=== PATIENT | female | born 1955 | race Caucasian/White ===

== ENCOUNTER → 2016-07-17 | Outpatient (CLI) | payer OTHER ==
[2016-07-17 16:45] LABS: HEMATOCRIT 40.5 % (36.0-46.0); MEAN CELL HGB 31.2 pg (26-34); MEAN CELL HGB CONCENTRATION 32.1 g/dL (33-37); MEAN CORP VOLUME 97.1 fL (78-100); MEAN PLATELET VOLUME 9.5 fL (7.8-11.0); RED CELL DISTRIBUTION WIDTH 13.3 % (11.5-14.5); WHITE BLOOD CELL 13.8 10^3/uL (4.5-11.0)
[2016-07-17 17:13] LABS: CALCIUM 9.3 mg/dL (8.4-10.5)
== END | disposition home or self-care (01) ==
LOC: RT 16:26
PROVIDERS: ATTEND Ophthalmology
DX: Z01.810 Encounter for preprocedural cardiovascular examination (principal); H35.371 Puckering of macula, right eye
CPT/HCPCS: 36415; 80053; 85027; 93005

== ENCOUNTER → 2016-09-27 | Outpatient (CLI) | payer OTHER ==
--- NOTE | 2016-09-27 16:37 | DIREP ---
PROCEDURE:Digital Screening Mammogram TECHNIQUE:MLO and CC digital images of each breast are provided. Computer Assisted Detection (CAD) was utilized. COMPARISON:[facility], , DIGITAL MAMMO SCREENING, 06/23/2013, 12:09 PM. INDICATIONS:SCREENING BREAST COMPOSITION:The breasts are heterogeneously dense, which may obscure small masses. FINDINGS:There are no grouped microcalcifications, masses, or architectural distortions to suggest malignancy. There is no significant change as compared with the previous examination(s). IMPRESSION:No mammographic evidence of malignancy. RECOMMENDATIONS:Routine Screening Mammography per [employer] guidelines. OVERALL FINAL ASSESSMENT:BI-RADS 1 - Negative Mammogram Note: This facility participates in a mammography screening patient reminder system. Dictated by: Kyle Walter M.D. on 09/27/2016 at 04:35 PM
== END | disposition home or self-care (01) ==
LOC: RAD 11:34
PROVIDERS: ATTEND Obstetrics & Gynecology
DX: Z12.31 Encounter for screening mammogram for malignant neoplasm of breast (principal)
CPT/HCPCS: G0202; 77067

== ENCOUNTER 2017-01-24 10:48 | Inpatient (IN) | payer OTHER ==
[~2017-01-24] VITALS: Ht 170.2 cm; Wt 103.4 kg
--- NOTE | 2017-01-24 11:06 | ER.PDOC ---
General Chief Complaint: Abdomen Pain Stated Complaint: ABD PAIN Time seen by MD: 11:04 Source: patient Exam Limitations: no limitations History of Present Illness Initial Comments pt had acute onset of epigastric and upper abdominal pain, no radiation, denies fever/chills Timing/Duration: 1-3 hours Severity/Quality: mild Radiation: no radiation Associated Symptoms: denies symptoms Allergies: Coded Allergies: Penicillins (Verified Allergy, Unknown, Rash, 03/12/16) Vital Signs First Vital Signs Date Time Temp Pulse Resp B/P (MAP) Pulse Ox O2 Delivery O2 Flow Rate FiO2 01/24/17 11:00 97.8 84 17 97 01/24/17 11:02 146/96 (113) Last Vital Signs Date Time Temp Pulse Resp B/P (MAP) Pulse Ox O2 Delivery O2 Flow Rate FiO2 01/24/17 11:02 97.8 91 17 146/96 (113) 97 Past Medical History Medical History: no pertinent history Surgical History: back LMP (females 10-50): postmenopause Social History Smoking: non-smoker Alcohol Use: none Drug Use: none Reviewed Nursing Reviewed: Vital Signs, Abn. Noted, Nursing Assessment Constitutional: no symptoms reported EENTM: no symptoms reported Respiratory: no symptoms reported Cardiovascular: no symptoms reported Gastrointestinal: see HPI, abdominal pain Musculoskeletal: no symptoms reported Skin: no symptoms reported Psychiatric/Neurological: no symptoms reported Endocrine: no symptoms reported Hematologic/Lymphatic: no symptoms reported Physical Exam General Appearance: Mild Distress HEENT: PERRL/EOMI, Normal ENT Inspection, TMs Normal, Pharynx Normal Neck: Non-Tender, Full Range of Motion, Supple, Normal Inspection Respiratory: chest non-tender, lungs clear, normal breath sounds, no respiratory distress, no accessory muscle use Cardiovascular: Normal Peripheral Pulses, Regular Rate, Rhythm, No Edema, No Gallop, No JVD, No Murmur Gastrointestinal: Normal Bowel Sounds, Non Tender, Soft, Tenderness (RUQ, epigastric) Back: Normal Inspection, No CVA Tenderness, No Vertebral Tenderness Extremities: Normal Range of Motion, Non-Tender, Normal Inspection, No Pedal Edema, No Calf Tenderness, Normal Capillary Refill, Pelvis Stable 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, No Motor/Sensory Deficits, Alert, Normal Mood/Affect, Oriented x 3 Skin: Normal Color, Warm/Dry EKG/XRAY/CT/US Ultrasound: gall bladder stones, thick gall bladder wall Consult/PCP Time Consult/PCP Called: 13:30 Consult/PCP: called Dr Sheriff left VM; he called back; antibiotics; Dr Mckenna accepts Course Blood Pressure Systolic: 146 Blood Pressure Diastolic: 96 Blood Pressure Mean: 113 Departure Time of Disposition: 13:45 Disposition: 09 ADMITTED INPATIENT Impression: Primary Impression: Acute cholecystitis due to biliary calculus Additional Impression: Biliary colic Condition: Improved Referrals: DEBRA MCKENNA MD (PCP) PRIMARY CARE PROVIDER Problem Qualifiers CRISELDA ZAMORANO MD Jan 24, 2017 11:06
--- NOTE | 2017-01-24 11:18 | PCM.EKG ---
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
[2017-01-24 11:25] LABS: BASOPHIL # 0.1 10^3/uL (0.0-0.1); BASOPHIL % 0.3 % (0.0-0.2); EOSINOPHIL # 0.1 10^3/uL (0.0-0.2); EOSINOPHIL % 0.4 % (0.0-5.0); HEMOGLOBIN 13.7 g/dL (12.0-15.0); LYMPHOCYTES # 2.2 10^3/uL (1.0-4.8); LYMPHOCYTES % 14.3 % (24.0-44.0); MEAN CELL HGB 30.9 pg (26-34); MEAN CELL HGB CONCENTRATION 32.1 g/dL (33-37); MEAN CORP VOLUME 96.2 fL (78-100); MEAN PLATELET VOLUME 9.7 fL (7.8-11.0); MONOCYTES # 0.8 10^3/uL (0.3-0.8); MONOCYTES % 5.4 % (5.0-12.0); NEUTROPHIL # 11.9 10^3/uL (1.8-7.7); NEUTROPHILS % 79.2 % (41.0-85.0); RED CELL DISTRIBUTION WIDTH 13.1 % (11.5-14.5); WHITE BLOOD CELL 15.1 10^3/uL (4.5-11.0)
[2017-01-24 11:27] LABS: BILIRUBIN,URINE NEGATIVE (NEGATIVE); UROBILINOGEN,URINE NORMAL (NEGATIVE)
[2017-01-24 11:29] LABS: APPEARANCE,URINE CLEAR (CLEAR); UA COLOR YELLOW (YELLOW)
[2017-01-24] MEDS ORDERED: TORADOL IV STA (11:34)
[2017-01-24] MEDS ORDERED: PROTONIX IV IV STA (11:34)
[2017-01-24] MEDS ORDERED: PROTONIX IV IV ONE (11:41)
[2017-01-24] MEDS ORDERED: TORADOL ONE (11:41)
[2017-01-24 11:46] LABS: ALANINE AMINOTRANSFERASE 32 U/L (12-78); ALKALINE PHOSPHATASE 95 U/L (50-136); AMYLASE 31 U/L (25-115); ASPARTATE AMINO TRANSFERASE 40 U/L (0-35); CALCIUM 9.5 mg/dL (8.4-10.5); CARBON DIOXIDE 28.6 mmol/L (20.0-32); GLUCOSE 123 mg/dL (70-110)
--- NOTE | 2017-01-24 13:28 | NUR ---
DR ZAMBRANO [facility] [place] WAS LEFT FOR DR ZAMBRANO TO CALL THE ED BACK
--- NOTE | 2017-01-24 13:30 | NUR ---
DR JUAN MANUEL ZAMORANO ON PHONE WITH DR ZAMBRANO
--- NOTE | 2017-01-24 13:37 | NUR ---
CELE ZAMORANO ON PHONE WITH DR OAKLEY REGARDING PT.
--- NOTE | 2017-01-24 14:04 | DIREP ---
PROCEDURE:US ABDOMEN LIMITED(SINGLE ORGAN,QUAD) COMPARISON:None. INDICATIONS:RUQ, epigastric pain, 15K WBC, elevated AST, INDIGESTION, GALLSTONES FINDINGS: LIVER:Normal hepatic parenchymal architecture and echogenicity. No focal hepatic lesion. Hepatopetal flow in the portal vein. BILIARY:The gallbladder is distended and contains multiple shadowing gallstones. The gallbladder wall is thickened to 5-6 mm. No definite pericholecystic fluid is identified. A sonographic Byrd's sign was elicited. The common bile duct is dilated, measuring 1.1 cm. No significant intrahepatic biliary ductal dilatation. No common duct stone is seen on the provided images. PANCREAS:Visualized portions of the head and body are unremarkable. The tail is obscured by bowel gas. RIGHT KIDNEY:Normal. Measures 11.3 cm in length. No solid mass or hydronephrosis. OTHER:Negative. No ascites is identified. CONCLUSION: 1. Cholelithiasis with a thickened gallbladder wall and a positive sonographic Byrd's sign, suspicious for acute cholecystitis. 2. Dilated common bile duct, measuring up to 1.1 cm diameter. No intrahepatic biliary ductal dilatation. Correlate for clinical and laboratory findings of biliary obstruction. Consider further evaluation with intraoperative cholangiogram, ERCP, or MRCP. 3. Otherwise unremarkable right upper quadrant ultrasound. Dictated by: Antwan Tidwell M.D. On 01/24/2017 at 01:19 PM
[2017-01-24] MEDS ORDERED: NS 100ML 100 ML IV ONE (14:21)
[2017-01-24] MEDS ORDERED: ROCEPHIN ONE (14:21)
[2017-01-24] MEDS ORDERED: ULTRAM PO PRN (14:30)
[2017-01-24] MEDS ORDERED: PHENERGAN IV PRN (14:30)
[2017-01-24] MEDS ORDERED: ROCEPHIN 1,000 MG in NS 100ML 100 ML IV SCH (14:30)
[2017-01-24] MEDS ORDERED: NORCO 5MG PO PRN (14:30)
[2017-01-24] MEDS ORDERED: NORCO 5MG PO ONE (14:32)
--- NOTE | 2017-01-24 14:40 | NUR ---
MEDSURG REPORT TO NILDA THOMPSON.
[2017-01-24] MEDS: ZOFRAN IV PRN (15:10)
[2017-01-24 16:07] VITALS: BP 145/72
[2017-01-24] MEDS: CIPRO 200 ML IV SCH (17:42)
[2017-01-24] MEDS ORDERED: FLAGYL 500MG/ 100 ML NS 100 ML IV SCH (18:00)
[2017-01-24] MEDS ORDERED: LACTATED RINGERS IV SCH ×3 (19:00→20:57)
[2017-01-24] MEDS ORDERED: LOVENOX SQ SCH (19:00)
[2017-01-24 19:22] VITALS: BP 150/76
--- NOTE | 2017-01-24 21:24 | HPH ---
ADMIT DATE: 01/24/2017 The patient is being admitted as an inpatient. PRIMARY CARE PHYSICIAN: Chikis Mckenna MD ADMITTING DIAGNOSES: 1. Acute cholecystitis with cholelithiasis. 2. Right upper quadrant pain with nausea. CHIEF COMPLAINT: Abdominal pain and nausea. 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 This persisted and got worse. This caused nausea, but no vomiting. No diarrhea reported, no constipation. The pain did not radiate. No fever, no chills. No syncope, no lethargy reported. She states that she had a similar pain months ago, but it was not this severe. With the increasing severity, she checked herself into the ER and was subsequently admitted to my service thereafter. No recent travel. She has not eaten anything out of the ordinary. PAST MEDICAL HISTORY: She is postmenopausal. Degenerative joint disease. PAST SURGICAL HISTORY: She has had neck surgery in 2002 and back surgery. OBSTETRIC HISTORY: She is a G2, P2. SOCIAL HISTORY: She does not smoke. No illicit drugs. No alcohol reported. ALLERGIES: NO KNOWN DRUG ALLERGIES. MEDICATIONS: The medications she is on include Klonopin 0.5 mg twice a day as needed, Ambien 10 mg at bedtime as needed. FAMILY HISTORY: The family history was asked and is noncontributory for this admission. PHYSICAL EXAMINATION: VITAL SIGNS: On admission, temperature was 97.8 degrees Fahrenheit, pulse rate 84, respirations 17, blood pressure 146/96 mmHg, and O2 saturation 97% on room air. My physical exam is as follows: GENERAL: She is in no acute distress; awake, alert, and oriented x 4. HEENT: Oropharynx is clear. Moist mucous membranes noted. NECK: The neck is supple. No JVD, no bruits. HEART: S1, S2 audible. No tachycardia. PULMONARY: The lungs were clear bilaterally. She is not tachypneic. ABDOMEN: She did have right upper quadrant tenderness noted, but no rebound, no guarding, no masses. EXTREMITIES: No pitting edema. No rashes. 2+ distal pulses are noted. LABORATORY DATA: Labs were drawn, white count was elevated at 15,100, hemoglobin 13.7, and platelet count 276. Chemistry panel showed glucose 123 and AST 40. Amylase and lipase were normal. Troponin was negative. UA was clear. H. pylori was positive. Abdominal ultrasound showed a common bile duct of 1.1 cm, which was dilated. She did have gallstones and a thickened gallbladder wall suggestive of acute cholecystitis. ASSESSMENT and PLAN: We have this female patient with acute cholecystitis with cholelithiasis with right upper quadrant pain. I will go ahead and put her in the hospital for pain control. I will start her on IV antibiotics. I will put her on a PPI twice a day and treat the H. pylori as well. Surgery has been consulted and will be following along. The plan is to cool her gallbladder down to see how she will do by tomorrow. We will repeat labs in the morning too. Chikis Mckenna MD DR: MATEUS/lorena JOB# [id number]
[2017-01-24] MEDS ORDERED: LOVENOX SQ ONE (22:15)
[2017-01-24] MEDS: TYLENOL PO PRN (22:24)
[2017-01-24] MEDS: PROTONIX PO SCH (22:25)
[2017-01-24] MEDS: AMBIEN PO PRN (22:25)
[2017-01-24] MEDS: FLAGYL 500MG/ 100 ML NS 100 ML IV SCH (22:27)
[2017-01-25 00:16] VITALS: BP 120/68
[2017-01-25 03:38] VITALS: BP 126/67
--- NOTE | 2017-01-25 04:43 | CNH ---
DATE OF CONSULTATION: CHIEF COMPLAINT: Cholelithiasis. HISTORY OF PRESENT ILLNESS: This is a 61-year-old female who reports she had an episode of similar symptoms she had 3 months ago, that lasted 45 minutes and resolved, and it was not that severe. She reports she had a sudden onset of severe symptoms at approximately 0820 this morning. It was a strong, pressure-like pain in the upper abdomen with posterior radiation. She developed nausea without vomiting. She presented to the ER at [facility]. Her workup included laboratory studies and an ultrasound that showed an elevated white count and cholelithiasis changes consistent with cholecystitis. At the time of my evaluation, she was on the floor after receiving some initial meds. She reported her pain is a zero out of 10 and that her pain is improved, but she still feels bad and is not her normal self. She is otherwise very cooperative with the history and physical. PAST MEDICAL HISTORY: She reports some depression and some arthritis in her neck and back. She denies diabetes or hypertension. 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 PAST SURGICAL HISTORY: In 2002, she had a neck surgery, and in 2013, she had lower back surgery with an abdominal approach. ALLERGIES: PENICILLIN. OUTPATIENT MEDICATIONS: Lexapro, estradiol, and Ambien. SOCIAL HISTORY: Negative for alcohol, tobacco, or illicit drug use. 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 FAMILY HISTORY: Her biologic mother passed in her 80s with complications of gallbladder disease associated with a history of diabetes. And she was aware of her adopted family's history, although it is essentially noncontributory to this evaluation. REVIEW OF SYSTEMS: CONSTITUTIONAL: She did not report any fever or chills, although she had some weakness. ENDOCRINE: She denied thyroid disease or diabetes. RESPIRATORY: She does report some seasonal allergies. CARDIOVASCULAR: No chest pain or trouble at this time. PULMONARY: No dyspnea or cough. ABDOMEN: As per the HPI. GENITOURINARY: She denied dysuria, frequency, or urgency. She did report nocturia x 1 on most days. MUSCULOSKELETAL: She has no known chronic complaints. NEUROLOGIC: No reported seizures or blackouts. SKIN AND INTEGUMENTARY: No acute rashes or changes. PHYSICAL EXAMINATION: VITAL SIGNS: An afebrile female, last temperature was 97.8 degrees Fahrenheit, pulse 79, respiratory rate 16, and blood pressure 145/72 mmHg. HEENT: Normocephalic and atraumatic. Medley mucous membranes. NECK: Supple and soft. Trachea is midline. She has no JVD or thyromegaly. CARDIOVASCULAR: Heart has a regular rate and rhythm. PULMONARY: The lungs were clear to auscultation anteriorly, bilaterally. ABDOMEN: Bowel sounds were positive, soft. She had minimal tenderness in the right upper quadrant. EXTREMITIES: Positive radial pulse bilaterally and positive dorsalis pedal pulse bilaterally. NEUROLOGIC: No acute findings. Cranial 2 through 12 grossly intact. SKIN AND INTEGUMENT: Warm and dry. LABORATORY STUDIES: White count 15.1 today, hemoglobin 13.7, and platelet count 276. Chemistry showed BUN 15 and creatinine 1.16. Her AST was slightly elevated at 40. Total bilirubin is 0.6. Urine showed specific gravity 1.015. Serology: H. pylori positive. IMAGING STUDIES: Ultrasound showed changes consistent with cholelithiasis, cholecystitis. SURGICAL ASSESSMENT: 1. Acute calculous cholelithiasis. 2. H. pylori seropositive. 3. History of osteoarthritis. PLAN: 1. The patient was seen and examined and the chart was reviewed. 2. After an extensive discussion with this patient, if possible, she admitted she has never had a colonoscopy and would like to avoid having a surgery during this acute episode and possibly delay it to an elective state when she could also have a colonoscopy at that time. I have discussed extensively with her and her the possibility of doing this, and it will depend on how she does clinically with conservative treatment, and if she fails, she may require an operative intervention. She has been advised that if she does improve adequately for an elective evaluation and treatment, she increases her statistical chance of having a laparoscopic gallbladder removal. The patient expressed understanding with this plan and I have discussed it with the primary service. Roger Sheriff DO DR: MELODY/lorena JOB# [id number] CC: Chikis Mckenna MD
[2017-01-25 05:07] LABS: BASOPHIL % 0.6 % (0.0-0.2); EOSINOPHIL # 0.1 10^3/uL (0.0-0.2); EOSINOPHIL % 1.9 % (0.0-5.0); HEMOGLOBIN 12.6 g/dL (12.0-15.0); LYMPHOCYTES # 1.7 10^3/uL (1.0-4.8); LYMPHOCYTES % 27.2 % (24.0-44.0); MEAN CELL HGB 30.5 pg (26-34); MEAN CELL HGB CONCENTRATION 31.7 g/dL (33-37); MEAN CORP VOLUME 96.4 fL (78-100); MEAN PLATELET VOLUME 9.9 fL (7.8-11.0); MONOCYTES # 0.6 10^3/uL (0.3-0.8); MONOCYTES % 8.7 % (5.0-12.0); NEUTROPHIL # 3.9 10^3/uL (1.8-7.7); NEUTROPHILS % 61.3 % (41.0-85.0); RED CELL DISTRIBUTION WIDTH 13.1 % (11.5-14.5); WHITE BLOOD CELL 6.3 10^3/uL (4.5-11.0)
[2017-01-25] MEDS: CIPRO 200 ML IV SCH ×2 (05:36→16:57)
[2017-01-25] MEDS: FLAGYL 500MG/ 100 ML NS 100 ML IV SCH ×3 (06:10→22:29)
[2017-01-25] MEDS: TYLENOL PO PRN ×2 (07:36→22:39)
[2017-01-25 07:43] VITALS: BP 110/69
[2017-01-25] MEDS: LACTATED RINGERS 1,000 ML IV SCH ×2 (09:00→16:57)
[2017-01-25] MEDS ORDERED: PROTONIX PO SCH (09:00)
[2017-01-25] MEDS: PROTONIX PO SCH ×2 (09:17→20:50)
--- NOTE | 2017-01-25 10:35 | NUR ---
DISCHARGE PLANNING: SS VISITED WITH PT REGARDING DISCHARGE PLANNING. PT LIVES HOME WITH HER SPOUSE. PT IS VERY INDEPENDENT AND WORKS DAILY AT [employer]. PT DENIES NEEDING ADDITIONAL RESOURCES AT THIS TIME. PT SAFETY HANDOUT ADDRESSED, NO QUESTIONS ASKED, UNDERSTANDING VERBALIZED. NO FURTHER NEEDS NOTED OR IDENTIFIED AT THIS TIME. CONTACT INFORMATION PROVIDED. SS TO CONTINUE TO FOLLOW AND MONITOR DISCHARGE PLANNING NEEDS.
[2017-01-25 11:30] VITALS: BP 126/71
[2017-01-25] MEDS ORDERED: ROCEPHIN IV SCH (14:30)
[2017-01-25] MEDS ORDERED: WATER IV SCH (14:30)
[2017-01-25] MEDS ORDERED: DEXTROSE 5% IV SCH (14:30)
[2017-01-25 16:26] VITALS: BP 110/71
--- NOTE | 2017-01-25 17:48 | PRM.PN ---
Subjective Subjective Date: Jan 25, 2017 Time: 17:35 Subjective Pt denies any pain; feels good Patient History: High cholesterol 32 MOTHER, 33 FATHER, Hypertension 32 MOTHER, 33 FATHER, VTE VTE Risk Total Score: 2 VTE Risk Score VTE Risk: Score 0-1 = Low Risk (Aggressive mobilization; early ambulation; no VTE prophylaxis required) Score 2: Moderate Risk (Intermittent/Pneumatic Compression Device OR Lovenox/Heparin/Coumadin) Score 3-4: High Risk (Intermittent/Pneumatic Compression Device AND Lovenox/Heparin/Coumadin) Score > or =5: Highest Risk (Intermittent/Pneumatic Compression Device AND Lovenox/Heparin/Coumadin) Antico:Hep/LMWH/Coum/Xarelto: Yes Mechanical device ordered: Yes Review of Systems Constitutional: No: Fever, Chills, Sweats, Weakness, Malaise Eyes: No: Pain, Vision change, Conjunctivae inflammation ENT: No: Ear pain, Ear discharge, Nose pain, Nose discharge Respiratory: No: Cough, Dry, Shortness of breath, SOB with excertion Cardiovascular: No: Chest Pain, Palpitations, Orthopnea, Paroxysmal Noc. Dyspnea Gastrointestinal: No: Nausea, Vomiting, Abdominal Pain, Diarrhea Genitourinary: No Dysuria, No Frequency, No Incontinence, No Hematuria Musculoskeletal: No: neck pain, arm pain, back pain, hand pain Skin: No: Rash, Lesions, Jaundice, Bruising Neurological: No: Confusion, Seizures Allergies: Coded Allergies: Penicillins (Verified Allergy, Unknown, Rash, 03/12/16) Objective Vitals and I/O Vital Sign - Last 24 Hours 01/24/17 01/24/17 01/25/17 01/25/17 19:22 20:00 00:16 03:38 Temp 98.1 98.4 98.4 Pulse 69 66 71 Resp 20 20 20 B/P (MAP) 150/76 (100) 120/68 (85) 126/67 (86) Pulse Ox 96 93 91 O2 Delivery Room Air 01/25/17 01/25/17 01/25/17 01/25/17 07:43 07:44 11:30 16:26 Temp 98.2 98.7 98.7 Pulse 67 61 56 Resp 18 18 18 B/P (MAP) 110/69 (83) 126/71 (89) 110/71 (84) Pulse Ox 95 95 94 O2 Delivery Room Air Room Air Room Air Intake and Output 01/24/17 01/24/17 01/25/17 15:00 23:00 07:00 Intake Total 580 ml 1282 ml Output Total 750 ml 600 ml Balance -170 ml 682 ml General: Alert, Oriented X3, Cooperative, No acute distress HEENT: Atraumatic, PERRLA, EOMI, Mucous membr. moist/pink Neck: Supple, No JVD, No thyromegaly, +2 carotid pulse wo bruit Lungs: Clear to auscultation, Normal air movement Heart: Normal S1, Normal S2 Abdomen: Normal bowel sounds, Soft Extremities: No clubbing, No cyanosis Skin: No breakdown Neuro: Normal gait, Normal speech Psych/Mental Status: Mental status NL, Mood NL Course Blood Pressure Systolic: 110 Blood Pressure Diastolic: 71 Blood Pressure Mean: 84 Assessment/Plan Assessment/Plan Assessment/Plan 61 yo female with cholecystitis with cholelithiasis - to goto OR tomorrow - cont IV abx - follow clinically Problems: Patient History: High cholesterol 32 MOTHER, 33 FATHER, Hypertension 32 MOTHER, 33 FATHER, DEBRA OAKLEY MD Jan 25, 2017 17:48
--- NOTE | 2017-01-25 18:31 | NUR ---
report received report from offgoing shift
[2017-01-25 18:58] VITALS: BP 129/66
[2017-01-25] MEDS ORDERED: LOVENOX SQ SCH (20:00)
[2017-01-25] MEDS: AMBIEN PO PRN (22:30)
--- NOTE | 2017-01-25 23:57 | PNH ---
DATE: SUBJECTIVE: A 61-year-old female in no acute distress. She was seen with her in the room. She is tolerating clears. Her pain has improved. She has no nausea or vomiting. OBJECTIVE: VITAL SIGNS: Last temperature was 98.7 degrees Fahrenheit, pulse 86, respiration rate 18, and blood pressure 110/71 mmHg. ABDOMEN: Bowel sounds positive, soft. It is not tender. LABORATORY DATA: Laboratories today: White count improved to 6.3, hemoglobin 12.7, and platelet count 263. Chemistry today showed total bilirubin increased to 2.0 with direct bilirubin at 1.2. AST has increased to 697, ALT has increased to 570, and alkaline phosphatase has increased to 171 today. SURGICAL ASSESSMENT: 1. Cholelithiasis with acute cholecystitis. 2. Probable choledocholithiasis. PLAN: 1. The patient was seen and examined and the chart was reviewed. 2. After an extensive discussion with the patient and her family regarding the options, we will plan for a laparoscopic-assisted cholecystectomy tomorrow. Roger Sheriff DO DR: MELODY/lorena JOB# [id number] CC: Chikis Mckenna MD
[2017-01-26] VITALS (13 sets, daily range): BP systolic 110–154; BP diastolic 52–87
[2017-01-26] MEDS: LACTATED RINGERS 1,000 ML IV SCH ×3 (04:16→17:00)
[2017-01-26] MEDS: CIPRO 200 ML IV SCH ×2 (05:06→17:30)
[2017-01-26] MEDS: FLAGYL 500MG/ 100 ML NS 100 ML IV SCH ×2 (06:12→15:27)
[2017-01-26] MEDS ORDERED: ZOFRAN ONE (06:42)
[2017-01-26] MEDS ORDERED: DECADRON ONE (06:42)
[2017-01-26] MEDS ORDERED: TORADOL ONE (06:42)
[2017-01-26] MEDS ORDERED: ZEMURON IV ONE (06:42)
[2017-01-26] MEDS ORDERED: NEOSTIGMINE ONE (06:42)
[2017-01-26] MEDS ORDERED: XYLOCAINE ONE (06:42)
[2017-01-26] MEDS ORDERED: DILAUDID ONE (06:43)
[2017-01-26] MEDS ORDERED: DIPRIVAN IV ONE (06:43)
[2017-01-26] MEDS ORDERED: VERSED ONE (06:43)
[2017-01-26] MEDS ORDERED: SUBLIMAZE ONE (06:43)
[2017-01-26] MEDS ORDERED: LACTATED RINGERS 1,000 ML ONE (06:44)
--- NOTE | 2017-01-26 06:48 | NUR ---
REPORT RECEIVED FROM NILDA MATT.
--- NOTE | 2017-01-26 06:48 | NUR ---
REPORT REPORT GIVEN TO O/C SHIFT
[2017-01-26] MEDS ORDERED: SENSORCAINE-MPF 0.25% VIAL ONE (07:29)
[2017-01-26] MEDS ORDERED: SODIUM CHLORIDE IR ONE (07:29)
[2017-01-26] MEDS ORDERED: SODIUM CHLORIDE IRR BAG 1,000 ML ONE ×2 (07:29→11:14)
--- NOTE | 2017-01-26 07:30 | NUR ---
ALENA CONN NP AT BEDSIDE. PEDAL PULSES ASSESSED WITH DOPPLER. WEAK PEDAL PULSE PRESENT IN RIGHT INNER ANKLE. ALENA DISCUSSED DISCHARGE WITH PATIENT AND FAMILY. PATIENT AND FAMILY IN AGREEMENT. ALENA EDUCATED PATIENT AND FAMILY RE: S/S TO REPORT, S/S OF WHEN TO RETURN TO HOSPITAL, TREATMENT AND MEDICATIONS. FAMILY AND PATIENT VERBALIZED UNDERSTANDING. Addendum: 01/26/17 at 0916 by Shea Bermeo RN - tile and marble installer INCORRECT ENTRY
[2017-01-26] MEDS: PROTONIX PO SCH (09:00)
--- NOTE | 2017-01-26 09:19 | NUR ---
PATIENT OFF UNIT FOR SURGERY.
[2017-01-26] MEDS ORDERED: SENSORCAINE-MPF 0.5% VIAL ONE (09:31)
[2017-01-26] MEDS ORDERED: GENTAMICIN SULFATE ONE ×2 (11:00→11:14)
[2017-01-26] MEDS ORDERED: SUBLIMAZE IV PRN (12:00)
[2017-01-26] MEDS ORDERED: DILAUDID IV PRN (12:00)
[2017-01-26] MEDS: ZOFRAN IV PRN (12:01)
--- NOTE | 2017-01-26 12:32 | OPH ---
DATE OF SURGERY: PREOPERATIVE DIAGNOSIS: Cholelithiasis with acute cholecystitis. POSTOPERATIVE DIAGNOSIS: Acute and chronic calculous cholecystitis. SURGEON: Roger Sheriff DO SEALER [employer]FT: Operating Room staff ANESTHESIA: General by Herbert Key CRNA, plus local used on the field. PROCEDURE PERFORMED: Laparoscopic cholecystectomy. SPECIMENS: Gallbladder to Pathology, with multiple stones. ESTIMATED BLOOD LOSS: 40 mL COUNTS: At the completion of the case, the counts were correct per the OR staff. DESCRIPTION OF PROCEDURE: This is a very pleasant 61-year-old female known from previous consult and evaluation. Prior to procedure, informed consent was obtained, and at the time of the procedure, she was taken to the operative suite and placed in the supine position. After a timeout was completed and anesthesia obtained, her abdomen was prepped and draped in the normal fashion. Local was used to anesthetize the periumbilical region. An incision was created and a 5 mm trocar was introduced into the abdomen with Endo camera visualization. Once in the abdomen, pneumoperitoneum was induced to a level of 14 mmHg. Next, under camera visualization, a 5 mm trocar was placed laterally in the right upper quadrant, a 12 mm trocar set in the epigastrium, and a 5 mm trocar was placed in the midline. The gallbladder was noted to have dense adhesions of the omentum to the body of the gallbladder and liver. The gallbladder was gently lifted and adhesions of the omentum to the body of the gallbladder were taken down using blunt dissection and electrocautery. After extensive dissection, attention was directed towards the infundibulum. Careful dissection was made to isolate ultimately what appeared to be the cystic duct. Once the cystic duct was isolated, it was clipped twice proximally and once distally, and divided sharply. Further dissection was made to isolate the cystic arteries, clipped twice proximally and once distally, and divided sharply. The gallbladder was then removed from the liver bed using electrocautery. Once completely removed, it was placed in the EndoCatch bag and removed through the epigastric trocar and passed onto the backtable. The trocar was reinserted and the gallbladder fossa was irrigated with sterile saline and inspected for bleeding. Any bleeding that could be easily identified was controlled with electrocautery. After extensive irrigation and meticulous hemostasis was noted, irrigation and suction, and closure was pursued. Prior to closure, a drain was placed into the lateral trocar site and placed at the perihepatic space. It was secured at the point of exit with a nylon suture. The 3 trocar sites were localized with camera visualizing. The camera was placed in the superior trocar and the 2 remaining inferior trocars were removed under camera visualization and there was noted to be no bleeding. The superior trocar with camera visualization through the he trocar tract and there was noted to be no bleeding. The fascia on the epigastric incision was closed with 0 Vicryl suture. The remaining three skin incisions were closed with 4-0 Monocryl. The patient was cleaned, dressings were applied, and the drapes were removed. The patient appeared to have tolerated this procedure well and there was no acute complication noted. Roger Sheriff DO DR: MELODY/lorena JOB# [id number] CC: Chikis Mckenna MD
--- NOTE | 2017-01-26 12:40 | NUR ---
PATIENT RETURNED TO ROOM FROM OR. PATIENT AWAKE AND ALERT. DENIES PAIN OR DISCOMFORT. REPORTS "IM JUST SORE". REPORT RECEIVED FROM NILDA THOMASON. ELIANE DRAIN PRESENT. DRESSING CLEAN DRY AND INTACT. BANDAIDS AND STERI STRIPS TO TROCAR SITES X3. PATIENT TOLERATING ICE CHIPS WITHOUT PROBLEMS. SPECIAL VITAL SIGNS STARTED. SR UP X2. CALL LIGHT WITHIN REACH. PATIENT EAGER TO GET UP AND WALK. NO DISTRESS NOTED.
--- NOTE | 2017-01-26 14:00 | NUR ---
PATIENT AMBULATING IN HALLWAY BRISKLY WALKING. NEGATIVE S/S PAIN OR DISCOMFORT NOTED. PATIENT PUSHING IV POLE. IV PATENT WITHOUT S/S INFILTRATION. PATIENT WALKING FROM ONE END OF HALLWAY TO THE OTHER WITHOUT PROBLEMS.
--- NOTE | 2017-01-26 14:30 | NUR ---
PATIENT CONTINUES TO FREQUENTLY AMBULATE BRISKLY IN HALLWAY FROM ONE END OF HALLWAY TO THE OTHER WITHOUT PROBLEMS. PATIENT DENIES PAIN OR DISCOMFORT. PATIENT TOLERATING JELLO, BROTH AND CLEAR LIQUIDS WITHOUT PROBLEMS. DRESSINGS CLEAN DRY AND INTACT. ELIANE DRAIN DRAINING SANGUINOUS DRAINAGE. IV PATENT. VITAL SIGNS STABLE.
--- NOTE | 2017-01-26 15:08 | NUR ---
PATIENT AMBULATING IN HALLWAY WITHOUT EVIDENCE OF PAIN OR DISCOMFORT. PATIENT AMBULATING FREQUENTLY FROM ONE END OF HALLWAY TO THE OTHER.
[2017-01-26] MEDS ORDERED: PANT40TA3 PO (16:57)
[2017-01-26] MEDS ORDERED: CIPR500T86 PO (16:57)
[2017-01-26] MEDS ORDERED: METR500T PO (16:57)
--- NOTE | 2017-01-26 17:00 | NUR ---
PATIENT CONTINUES TO AMBULATE BRISKLY UP AND DOWN HALLWAYS WITHOUT PROBLEMS. PATIENT EAGER TO BE DISCHARGED. PATIENT DENIES PAIN. STATES "IM JUST SORE." ELIANE PATENT. DRAINING SANGUINOUS DRAINAGE. VOIDING WITHOUT PROBLEMS. TOLERATING LIQUIDS WITHOUT PROBLEMS. IV PATENT WITHOUT S/S INFILTRATION.
--- NOTE | 2017-01-26 18:00 | NUR ---
INSTRUCTED PATIENT RE: S/S INFECTION TO REPORT, I/S RE: DRAINING ELIANE DRAIN AND DOCUMENTING DRAINAGE FOR MD APPT, INSTRUCTED RE: STRIPPING ELIANE DRAIN, DEMONSTRATED ABILITY, INSTRUCTED RE: LOW FAT LIQUID DIET UNTIL SUNDAY THEN SOFT BLAND LOW FAT DIET. INSTRUCTED RE: NEW MEDS, ANTIBIOTICS X2 AND PROTONIX. INSTRUCTED RE: FOLLOWUP WITH DR ZAMBRANO AND TO CALL FOR APPT. PATIENT VERBALIZES UNDERSTANDING. ELIANE DRAIN SUTURED IN. 4X4 SPLIT DRAIN DRESSING INTACT AND STERI STRIPS AND BANDAIDS INTACT TO TROCAR SITES X3. DRESSINGS NOT TO BE REMOVED PER DR ZAMBRANO.
--- NOTE | 2017-01-26 18:25 | NUR ---
CIPRO IV DOSE AT 1730 MISSED. PATIENT DISCHARGED WITH CIPRO PRESCRIPTION PO.
--- NOTE | 2017-01-26 20:30 | DSH ---
DATE OF DISCHARGE: 01/26/2017 ADMITTING DIAGNOSES: Acute cholecystitis with cholelithiasis, right upper quadrant pain with nausea. DISCHARGE DIAGNOSES: Acute cholecystitis with cholelithiasis, status post laparoscopic cholecystectomy. HOSPITAL COURSE: The patient is a 61-year-old female who came into the ER with worsening right upper quadrant pain. She had a positive Byrd's sign. I went ahead and put her in the hospital and kept her n.p.o. An ultrasound did confirm cholecystitis and I went ahead and started her on IV Cipro and Flagyl. Her LFTs are actually increased, so we were thinking that she was passing a stone. Her pain was improved by day 2 when her LFTs climbed. Surgery was consulted and we watched her for another day. This morning her enzymes looked better and she was pain free, and so she went ahead and had a laparoscopic cholecystectomy done. Afterwards, she has been walking the halls many times already and she feels improved. She is passing flatus and is tolerating p.o. intake, vital signs are stable. DISCHARGING DISPOSITION: So currently, she will be discharged to home. She does have a ELIANE drain and we have given her education on maintaining it. I am going to put her on Cipro and Flagyl for 5 more days as well as PPI daily, stay on a liquid diet for now and advance to a low-fat diet after 2 days. Follow up with Dr. Sheriff next week and follow up with me in 2 weeks' time, my office staff will make the appointment. Chikis Mckenna MD DR: MATEUS/lorena JOB# [id number]
== END 2017-01-26 18:24 | disposition home or self-care (01) | DRG 419 ==
LOC: ER 10:48 → MS 13:49 → OBSVTOIN 14:06
PROVIDERS: ADMIT Pediatrics; ATTEND Pediatrics
PROC: 0DNU4ZZ Release Omentum, Percutaneous Endoscopic Approach (ICD-10-PCS; 2017-01-26)
PROC: 0FT44ZZ Resection of Gallbladder, Percutaneous Endoscopic Approach (ICD-10-PCS; principal; 2017-01-26 10:14)
DX: K80.00 Calculus of gallbladder with acute cholecystitis without obstruction (principal); B96.81 Helicobacter pylori [H. pylori] as the cause of diseases classified elsewhere; K66.0 Peritoneal adhesions (postprocedural) (postinfection); F32.9 Major depressive disorder, single episode, unspecified; M19.90 Unspecified osteoarthritis, unspecified site; Z83.3 Family history of diabetes mellitus; Z88.0 Allergy status to penicillin; Z83.49 Family history of other endocrine, nutritional and metabolic diseases; Z79.899 Other long term (current) drug therapy
CPT/HCPCS: 36415; 47562; 76705; 80053; 80076; 81002; 82150; 83690; 84484; 85025; 85610; 86677; 88304; 93005; 96374; 96375; 99285; C9113; G0378; J0696; J0744; J1100; J1170; J1580; J1650; J1885; J2250; J2405; J3010; J3490; J7030; J7050; J7120; J2710

== ENCOUNTER → 2017-10-04 | Outpatient (CLI) | payer OTHER ==
[~2017-10-04] MED LIST: CIPR500T86 PO; METR500T PO; PANT40TA3 PO
--- NOTE | 2017-10-04 15:22 | DIREP ---
PROCEDURE:US ABDOMEN LIMITED(SINGLE ORGAN-QUAD) COMPARISON:[facility], US, US ABDOMEN LIMITED(SINGLE ORGAN-QUAD), 01/24/2017, 12:47 PM. INDICATIONS:R10.13 EPIGASTRIC PAIN, R10.11 RUQ PAIN FINDINGS: CBD:1.0 cm RIGHT KIDNEY:11.1 x 6.2 x 5.1 cm PANCREAS:Pancreatic tail is obscured by bowel gas. The visualized portions of body common neck, and head are unremarkable. LIVER:Normal hepatic parenchymal architecture. No focal hepatic lesion is identified. Hepatopetal flow in the portal vein. GALLBLADDER:The gallbladder is surgically absent. BILIARY:The common bile duct is within normal limits for patient is undergone prior cholecystectomy. RIGHT KIDNEY:Normal. No hydronephrosis. OTHER:Negative. No ascites is identified. CONCLUSION:Normal exam post cholecystectomy. No biliary ductal dilatation. No evidence of hydronephrosis. Dictated by: [facility] Physician on 10/04/2017 at 01:22 PM ld
== END | disposition home or self-care (01) ==
LOC: RAD 10:27
PROVIDERS: ATTEND Internal Medicine
DX: R10.13 Epigastric pain (principal); R10.11 Right upper quadrant pain; Z90.49 Acquired absence of other specified parts of digestive tract
CPT/HCPCS: 76705

== ENCOUNTER → 2019-01-22 | Outpatient (CLI) | payer OTHER ==
--- NOTE | 2019-01-22 10:57 | DIREP ---
CORRECTION Corrected on: 01/22/2019; Correction made to final report under OVERALL FINAL ASSESSMENT original report inadvertently had a BI-RADS 2 and 4 classification, the only BI-RADS classification that applies to this exam is BI-RADS 4-suspicious abnormality-biopsy should be considered. PROCEDURE:MAMMO BILATERAL DIAGNOSTIC COMPARISON:[facility], , US BREAST COMPLETE-LT, 01/22/2019, 10:01 AM. [facility], , MAMMO BILATERAL SCREENING, 09/27/2016, 12:08 PM. INDICATIONS:D48.62 NEOPLASM OF UNCERTAIN BEHAVIOR OF LEFT BREAST BREAST COMPOSITION:The breasts are heterogeneously dense, which may obscure small masses. DIAGNOSTIC MAMMOGRAM: Right views [DIGITAL]: MLO and CC Left views [DIGITAL]: MLO and CC Computer Assisted Detection (CAD) was utilized. There are no grouped microcalcifications, masses, or architectural distortions to suggest malignancy. Specifically, there is no mammographic abnormality which might correlate with the palpable finding reported. Ultrasound was obtained to further evaluate area of palpable concern. PHYSICAL EXAMINATION: Palpable abnormality in the left upper inner breast at the 10 o'clock position only felt by physician, patient does not feel abnormality. Patient reports skin thickening in this region. BREAST SONOGRAM:Sonography of left breast and axilla was performed. [employer] Specialist scanned the 10 o'clock position 2 cm from the nipple at site of possible palpable concern, no underlying abnormality seen in this region; however, rubber stamp maker states area of palpable concern may extend to the 9 o'clock position 4 cm from the nipple. At the 9 o'clock position 4 cm from the nipple there is an irregular-shaped hypoechoic mass with angular margins in questionable posterior shadowing measuring 1.4 x 0.7 x 0.7 cm. Left axilla demonstrates no adenopathy. IMPRESSION: 1. Mass left breast 9 o'clock position possibly corresponding to area of palpable concern. Mass is suspicious of malignancy warranting further evaluation. RECOMMENDATIONS: 1. Ultrasound-guided core biopsy recommended for left breast mass 9 o'clock position. 2. Findings and recommendations were discussed with the patient. 3. Findings and recommendations were discussed with Dr. Gaines at 10:55 a.m. January 22, 2019, his office will arrange referral for biopsy. OVERALL FINAL ASSESSMENT: BI RADS 4 - Suspicious Abnormality - biopsy should be considered. Dictated by: Melo Larkin M.D. on 01/22/2019 at 09:44 AM Dictated by: Melo Larkin M.D. on 01/22/2019 at 11:00 AM
--- NOTE | 2019-01-22 11:03 | DIREP ---
PROCEDURE:US BREAST-LT COMPARISON:None. INDICATIONS:POSS LUMP LT 10:00 FINDINGS: Physician-directed ultrasound evaluation of the LEFT breast and axilla was performed. The findings and recommendations were discussed with the patient. Sonographic evaluation is performed in the radial and antiradial planes. Please see separately dictated diagnostic mammogram from the same date regarding findings. CONCLUSION: Please see separately dictated diagnostic mammogram from the same date regarding findings, conclusions and recommendations. OVERALL FINAL ASSESSMENT: BI RADS 4 - Suspicious Abnormality - biopsy should be considered. Dictated by: Melo Larkin M.D. on 01/22/2019 at 11:01 AM
--- NOTE | 2019-01-22 11:47 | DIREP ---
PROCEDURE:US PELVIS COMPLETE COMPARISON:None. INDICATIONS:N95.0 POSTMENOPAUSAL BLEEDING TECHNIQUE:Pelvic ultrasound using transabdominal technique. Endovaginal images were also obtained for better assessment of the uterus and adnexa. FINDINGS: LMP: Menopausal UTERUS:Size is 8.4 x 4.6 x 3.1 cm. The myometrium is heterogeneous. A 0.9 x 0.9 x 0.5 cm hypoechoic, heterogeneous lesion is in the anterior myometrium. ENDOMETRIUM:Thickened measuring 1.0 cm. Heterogeneous contents are visualized within the endometrial canal. RIGHT OVARY:Normal appearance. Soft tissue identified as the right ovary measures 1.4 x 0.6 x 1.6 cm. LEFT OVARY:Normal appearance. Soft tissue identified as the left ovary measures 1.1 x 0.5 x 0.9 cm. CUL-DE-SAC:Normal. OTHER:Negative. CONCLUSION:Thickened and heterogeneous endometrium, without discrete mass noted. Direct visualization and possible endometrial biopsy should be considered for further characterization. Dictated by: [facility] Physician on 01/22/2019 at 11:18 AM ac
== END | disposition home or self-care (01) ==
LOC: RAD 08:49
PROVIDERS: ATTEND Obstetrics & Gynecology
DX: N95.0 Postmenopausal bleeding (principal); N63.24 Unspecified lump in the left breast, lower inner quadrant
CPT/HCPCS: 76641; 76830; 76856; 77066

== ENCOUNTER → 2019-02-25 | Outpatient (CLI) | payer OTHER ==
--- NOTE | 2019-02-25 10:42 | DIREP ---
PROCEDURE:XRAY SPINE LUMBAR 2-3 VWS COMPARISON:None. INDICATIONS:M54.42 LUMBAGO WITH SCIATICA LEFT SIDE TECHNIQUE:AP, lateral, and coned down lateral views of the lumbar spine are provided. FINDINGS: ALIGNMENT:Normal. VERTEBRAE:Postsurgical changes are seen with anterior fusion with metal hardware and interbody fusion at L4-5 in good position. Mild anterior hypertrophic spurring is seen throughout the lumbar spine. Bilateral facet arthropathy seen at L5-S1. DISK SPACES:Interbody fusion at L4-5. SPONDYLOLISTHESIS:None. SACROILIAC JOINTS:Normal. OTHER:Surgical clips are seen in the right upper quadrant consistent with cholecystectomy. CONCLUSION:There are mild degenerative changes in the lumbar spine with anterior and interbody fusion at L4-5 with bilateral facet arthropathy at L5-S1. Dictated by: Keyur Garcia M.D. on 02/25/2019 at 10:39 AM
== END | disposition home or self-care (01) ==
LOC: RAD 09:16
PROVIDERS: ATTEND Nurse Practitioner
DX: M47.816 Spondylosis without myelopathy or radiculopathy, lumbar region (principal); M12.88 Other specific arthropathies, not elsewhere classified, other specified site; M54.42 Lumbago with sciatica, left side
CPT/HCPCS: 72100

== ENCOUNTER → 2019-08-21 | Outpatient (CLI) | payer OTHER, MEDICARE ==
--- NOTE | 2019-08-21 18:18 | DIREP ---
PROCEDURE:US PELVIC FOLLOWED BY TRANSVAGINAL COMPARISON:[facility], US, US PELVIS COMPLETE, 01/22/2019, 10:23 AM. INDICATIONS:N95.0 POSTMENOPAUSAL BLEEDING, f/u from 01/22/19 TECHNIQUE:Pelvic ultrasound using transabdominal technique. Endovaginal images were also obtained for better assessment of the uterus and adnexa. FINDINGS: LMP: Menopausal UTERUS:Size is 8.2 x 3.2 x 4.3 cm. The myometrium is homogeneous. ENDOMETRIUM:Thickened measuring 1.1 cm. Internal vascularity is demonstrated in the endometrium. RIGHT OVARY:Normal appearance. 2.5 x 0.8 x 1.7 cm. LEFT OVARY:Normal appearance. 2.2 x 1.2 x 1.6 cm. CUL-DE-SAC:Normal. OTHER:Negative. CONCLUSION:Abnormally thickened endometrium, with vascularity noted to the endometrium. Direct visualization and possible biopsy should be considered for further evaluation. Dictated by: [facility] Phys[facility] on 08/21/2019 at 06:06 PM [email or web address]
== END | disposition home or self-care (01) ==
LOC: RAD 14:51
PROVIDERS: ATTEND Obstetrics & Gynecology
DX: N95.0 Postmenopausal bleeding (principal)
CPT/HCPCS: 76830; 76856

== ENCOUNTER → 2020-06-02 | Outpatient (CLI) | payer OTHER, MEDICARE | END | disposition home or self-care (01) | LOC: LAB 16:52 | PROVIDERS: ATTEND Nurse Practitioner | DX: E03.9 Hypothyroidism, unspecified (principal); R20.2 Paresthesia of skin; Z79.899 Other long term (current) drug therapy | CPT/HCPCS: 36415; 82607; 84439; 84443 ==

== ENCOUNTER → 2020-06-17 | Outpatient (CLI) | payer BC, MEDICARE, MEDICAID ==
--- NOTE | 2020-06-17 18:46 | DIREP ---
PROCEDURE:MRI SPINE LUMBAR W/O COMPARISON:None. INDICATIONS:LUMBAGO WITH SCIATICA TECHNIQUE:A comprehensive examination was performed utilizing a variety of imaging planes and imaging parameters to optimize visualization of suspected pathology. Images were performed without intravenous gadolinium contrast. FINDINGS: ALIGNMENT:Normal. VERTEBRA:1.5 x 1.5 x 1.9 cm hemangioma within the L1 vertebral body . Previous anterior fusion changes L4-5. No fracture, pars defect, or osseous lesion. CORD/CAUDA EQUINA:Normal size, contour, and signal intensity. PARASPINAL AREA:Normal with no visible mass. OTHER:None. LUMBAR DISC LEVELS T12-L1:No significant disc/facet abnormality, spinal stenosis, or foraminal stenosis. L1-L2:No significant disc/facet abnormality, spinal stenosis, or foraminal stenosis. L2-L3:Posterior disc bulge with mild bilateral neural foraminal spinal canal narrowing. Mild facet disease. L3-L4:Mild right and moderate left facet disease. Prominent posterior disc bulge. Moderate to severe spinal canal narrowing with moderate bilateral neural foraminal narrowing. L4-L5:Mild facet disease. Minimal posterior disc bulge. Moderate right and mild left neural foraminal narrowing. L5-S1:Advanced bilateral facet disease without significant disc bulge. No high-grade spinal canal or neural foraminal narrowing. CONCLUSION:Multilevel degenerative changes detailed above. No acute fracture. Dictated by: Tye Mitchell DO on 06/17/2020 at 06:37 PM
== END | disposition home or self-care (01) ==
LOC: RAD 16:30
PROVIDERS: ATTEND Nurse Practitioner
DX: M48.061 Spinal stenosis, lumbar region without neurogenic claudication (principal); M47.816 Spondylosis without myelopathy or radiculopathy, lumbar region; M51.26 Other intervertebral disc displacement, lumbar region
CPT/HCPCS: 72148

== ENCOUNTER → 2021-02-07 | Outpatient (CLI) | payer MEDICARE, OTHER, MEDICAID ==
--- NOTE | 2021-02-07 08:24 | DIREP ---
PROCEDURE:XRAY FEMUR 2 VWS-RT COMPARISON:None. INDICATIONS:FALL PAIN FINDINGS: BONES:No acute fracture. JOINTS:Mild degenerative change of the right hip including joint space narrowing and sclerosis. Mild degenerative change of the right knee. SOFT TISSUES:Likely calcified granulomas at the right gluteal soft tissue. OTHER:Metallic clips overlie the mid pelvis. Fusion hardware seen at lower lumbar spine. There is mild degenerative changes lower lumbar spine. CONCLUSION: No acute fracture. Mild degenerative change of the right hip and knee. Dictated by: Giovanni Gentile MD on 02/07/2021 at 08:19 AM
--- NOTE | 2021-02-07 10:40 | DIREP ---
PROCEDURE:MRI SPINE LUMBAR W/O COMPARISON:[facility], MR, MRI SPINE LUMBAR W/O, 06/17/2020, 04:39 PM. INDICATIONS:FALL PAIN TECHNIQUE:A comprehensive examination was performed utilizing a variety of imaging planes and imaging parameters to optimize visualization of suspected pathology. Images were performed without intravenous gadolinium contrast. FINDINGS: ALIGNMENT:Normal. VERTEBRA:Anterior fixation hardware at the L4-5 level. Normal vertebral height. Mild diffuse anterior disc osteophyte complex formation largest at the L2-3 level. Stable hemangioma within the L1 vertebral body. CORD/CAUDA EQUINA:Normal size, contour, and signal intensity. PARASPINAL AREA:Normal with no visible mass. OTHER:None. LUMBAR DISC LEVELS T12-L1:Mild bilateral facet arthrosis. L1-L2:Moderate bilateral said arthrosis with mild ligamentum flavum redundancy. L2-L3:Moderate bilateral facet arthrosis with moderate ligamentum flavum redundancy. Broad-based posterior disc protrusion. Mild bilateral neural foraminal narrowing. L3-L4:Severe bilateral facet arthrosis with moderate ligamentum flavum redundancy. Broad-based posterior disc protrusion with central annular tear. Moderate right and [id number] left neural foraminal narrowing. L4-L5:Moderate bilateral facet arthrosis with mild ligamentum flavum redundancy. Broad-based posterior disc osteophyte complex. Mild bilateral neural foraminal narrowing. L5-S1:Severe bilateral facet arthrosis. Moderate ligamentum flavum redundancy. Mild to moderate bilateral neural foraminal narrowing. CONCLUSION:Postsurgical, degenerative and discogenic changes as above. No significant interval change since the prior study. Dictated by: Luciana Klein M.D. on 02/07/2021 at 10:36 AM
== END | disposition home or self-care (01) ==
LOC: RAD 07:45
PROVIDERS: ATTEND Nurse Practitioner Family
DX: M16.11 Unilateral primary osteoarthritis, right hip (principal); M17.11 Unilateral primary osteoarthritis, right knee; M47.816 Spondylosis without myelopathy or radiculopathy, lumbar region; M48.061 Spinal stenosis, lumbar region without neurogenic claudication; W19.XXXA Unspecified fall, initial encounter
CPT/HCPCS: 72148; 73550-RT

== ENCOUNTER → 2021-08-12 | Outpatient (CLI) | payer MEDICARE, OTHER, MEDICAID ==
--- NOTE | 2021-08-15 09:57 | DIREP ---
PROCEDURE:US THYROID TECHNIQUE:Thyroid ultrasound was performed with a high-frequency transducer. COMPARISON:None. INDICATIONS:E04.1 NONTOXIC SINGLE THYROID NODULE FINDINGS: THYROID OVERVIEW Right lobe - size: 5.2 x 1.7 x 1.8 cm, heterogeneous, 2 nodules Isthmus - size: 0.3 cm, heterogeneous, 0 nodules Left lobe - size: 5.1 x 2.2 x 1.9 cm, heterogeneous, 3 nodules THYROID NODULES Right Lobe, #1, Upper 1/3, size: 0.6 x 0.3 x 0.5 cm, Description: solid or almost completely solid, hypoechoic, [id number], ill-defined TI-RADS: 4, Recommendation: does not meet size criteria for F/U or FNA Right Lobe, #2, Middle 1/3, size: 0.7 x 0.5 x 0.8 cm, Description: solid or almost completely solid, hypoechoic, [id number], ill-defined TI-RADS: 4, Recommendation: does not meet size criteria for F/U or FNA Left Lobe, #1, Upper 1/3, size: 1.3 x 0.8 x 0.9 cm, Description: solid or almost completely solid, hyperechoic, [id number], smooth TI-RADS: 3, Recommendation: does not meet size criteria for F/U or FNA Left Lobe, #2, Middle 1/3, size: 0.3 x 0.1 x 0.3 cm, Description: solid or almost completely solid, hypoechoic, [id number], smooth TI-RADS: 4, Recommendation: does not meet size criteria for F/U or FNA Left Lobe, #3, Lower 1/3, size: 1.3 x 0.5 x 1.1 cm, Description: solid or almost completely solid, isoechoic, [id number], smooth TI-RADS: 3, Recommendation: does not meet size criteria for F/U or FNA TI-RADS: 1 = Benign, 2 = Not Suspicious, 3 = Mildly Suspicious, 4 = Moderately Suspicious, 5 = Highly Suspicious Reference: 2017 JACR, ACR Thyroid Imaging, Reporting and Data System (TIRADS): White Paper of the ACR TI-RADS Committee. OTHER:No additional findings. CONCLUSION: 1. Based on TI-RADS criteria, no FNA or additional follow-up is required. Dictated by: [facility] Physician on 08/15/2021 at 08:51 AM desean
== END | disposition home or self-care (01) ==
LOC: RAD 14:44
PROVIDERS: ATTEND Nurse Practitioner
DX: E04.1 Nontoxic single thyroid nodule (principal)
CPT/HCPCS: 76536